=== PATIENT | female | born 1980 | race Caucasian/White ===

== ENCOUNTER 2017-03-27 21:51 | Emergency (ER) | payer MEDICAID, OTHER ==
[~2017-03-27] VITALS: Ht 160 cm; Wt 87.7 kg
[2017-03-27 21:54] VITALS: BP 152/94
[2017-03-27] MEDS ORDERED: CLINDAMYCIN 150 MG CAPSULE PO ONE (23:00)
== END 2017-03-27 23:14 | disposition home or self-care (01) ==
LOC: ED 23:00
DX: L02.413 Cutaneous abscess of right upper limb (principal); L03.113 Cellulitis of right upper limb
CPT/HCPCS: 10060

== ENCOUNTER 2017-05-07 23:52 | Emergency (ER) | payer MEDICAID, OTHER ==
[~2017-05-07] VITALS: Ht 160 cm; Wt 85.2 kg
[2017-05-07 23:54] VITALS: BP 159/104
[2017-05-08] MEDS ORDERED: PROPARACAINE OPHTH 0.5%, 15ML ONE (01:20)
[2017-05-08] MEDS ORDERED: FLUORESCEIN OPHTHALMIC 1 MG STRIP ONE (01:20)
[2017-05-08] MEDS ORDERED: FLUORESCEIN OPHTHALMIC 1 MG STRIP EACHEYE ONE (01:30)
[2017-05-08] MEDS ORDERED: PROPARACAINE OPHTH 0.5%, 15ML EACHEYE ONE (01:30)
== END 2017-05-08 02:05 | disposition home or self-care (01) ==
LOC: ED 23:59
DX: R21 Rash and other nonspecific skin eruption (principal); Z88.1 Allergy status to other antibiotic agents; Z88.2 Allergy status to sulfonamides
CPT/HCPCS: 99282

== ENCOUNTER 2017-05-09 12:05 | Emergency (ER) | payer MEDICAID ==
[~2017-05-09] VITALS: Ht 160 cm; Wt 86.6 kg
[2017-05-09 12:46] LABS: HEMATOCRIT 42.5 % (34.6-47.8); HEMOGLOBIN 14.1 g/dL (11.7-16.4); WHITE BLOOD COUNT 11.5 x10^3/uL (3.4-10)
[2017-05-09 12:58] LABS: BLOOD UREA NITROGEN 8 mg/dL (7-18)
[2017-05-09] MEDS ORDERED: FLUORESCEIN OPHTHALMIC 1 MG STRIP ONE (12:59)
[2017-05-09] MEDS ORDERED: LORazepam 1MG TABLET PO ONE (13:00)
[2017-05-09 13:29] LABS: ASPARTATE AMINO TRANSFERASE 35 U/L (15-37); BLOOD UREA NITROGEN 8 mg/dL (7-18)
[2017-05-09] MEDS ORDERED: GADOBUTROL 10 MMOL/10 ML PFS ONE (15:06)
[2017-05-09] MEDS ORDERED: LORazepam 1MG TABLET ONE (16:08)
[2017-05-09 18:17] VITALS: BP 133/91
== END 2017-05-09 18:41 | disposition home or self-care (01) ==
LOC: ED 15:41
DX: H53.2 Diplopia (principal); Z90.49 Acquired absence of other specified parts of digestive tract
CPT/HCPCS: 36415; 70450; 70481; 70543; 70553; 71010; 80048; 80053; 82040; 85025; 85610; 85651; 93005; 99285; A9585

== ENCOUNTER 2017-09-18 20:50 | Emergency (ER) | payer MEDICAID ==
[~2017-09-18] VITALS: Ht 160 cm; Wt 95.3 kg
[2017-09-18 20:52] VITALS: BP 144/90
[2017-09-18 21:35] LABS: BASOPHILS # (AUTO) 0.04 x10^3/uL (0-0.1); BASOPHILS % (AUTO) 1 % (0-1); EOSINOPHILS # (AUTO) 0.26 x10^3/uL (0-0.4); EOSINOPHILS % (AUTO) 3 % (1-7); LYMPHOCYTES # (AUTO) 2.75 x10^3/uL (1-3.4); LYMPHOCYTES % (AUTO) 31 % (22-44); MD NO; MEAN CORPUSCULAR VOLUME 87.7 fL (80-100); MEAN PLATELET VOLUME 9.7 fL (7.4-10.4); MONOCYTES # (AUTO) 0.59 x10^3/uL (0.2-0.8); MONOCYTES % (AUTO) 7 % (2-9); NEUTROPHILS # (AUTO) 5.25 x10^3/uL (1.8-6.8); NEUTROPHILS % (AUTO) 59 % (42-75); PLATELET COUNT 266 x10^3/uL (130-400); RED BLOOD COUNT 4.77 x10^6/uL (3.82-5.3); RED CELL DISTRIBUTION WIDTH 12.9 % (9.6-15.2)
[2017-09-18 21:46] LABS: ANION GAP 7 mmol/L (5-15); CALCIUM 8.1 mg/dL (8.5-10.1); CHLORIDE 110 mmol/L (98-107); CREATININE 0.65 mg/dL (0.55-1.02)
[2017-09-18] MEDS ORDERED: DEXAMETHASONE 4 MG TABLET ONE (22:16)
[2017-09-18] MEDS ORDERED: DEXAMETHASONE 4 MG TABLET PO ONE (22:30)
== END 2017-09-18 22:33 | disposition home or self-care (01) ==
LOC: ED 21:42
DX: L03.213 Periorbital cellulitis (principal)
CPT/HCPCS: 36415; 80048; 85025; 99284

== ENCOUNTER 2017-12-19 08:04 | Emergency (ER) | payer MEDICAID ==
[~2017-12-19] VITALS: Ht 160 cm; Wt 92.7 kg
[2017-12-19] MEDS ORDERED: FAMOTIDINE 20 MG TABLET PO ONE (09:00)
[2017-12-19] MEDS ORDERED: DIPHENHYDRAMINE 50 MG/ML, 1ML IM ONE (09:00)
[2017-12-19] MEDS ORDERED: TRIAMCINOLONE ACETONIDE 40 MG/ML, 1ML IM ONE (09:00)
[2017-12-19] MEDS ORDERED: KETOROLAC 30 MG/1 ML IM ONE (09:00)
[2017-12-19] MEDS ORDERED: FAMOTIDINE 20 MG TABLET ONE (09:17)
[2017-12-19] MEDS ORDERED: DIPHENHYDRAMINE 50 MG/ML, 1ML ONE (09:18)
[2017-12-19] MEDS ORDERED: KETOROLAC 30 MG/1 ML ONE (09:18)
[2017-12-19 10:10] VITALS: BP 156/87
== END 2017-12-19 10:11 | disposition home or self-care (01) ==
LOC: ED 09:14
DX: L24.89 Irritant contact dermatitis due to other agents (principal)
CPT/HCPCS: 96372; 99284; J1200; J1885; J3301

== ENCOUNTER 2018-12-14 21:45 | Emergency (ER) | payer MEDICAID ==
[~2018-12-14] VITALS: Ht 160 cm; Wt 94.4 kg
[2018-12-14 21:48] VITALS: BP 168/110
[2018-12-14] MEDS ORDERED: HYDROcodone/APAP 5/325 TABLET PO ONE (22:00)
[2018-12-14] MEDS ORDERED: ONDANSETRON ODT 4 MG PO ONE (22:00)
[2018-12-14] MEDS ORDERED: ONDANSETRON ODT 4 MG ONE (22:02)
[2018-12-14] MEDS ORDERED: HYDROcodone/APAP 5/325 TABLET ONE (22:02)
--- NOTE | 2018-12-14 23:08 | NUR ---
SPLINT APPLIED BY TECH, PT AWARE OF FOLLOW-UP, USEOF ICE, ELEVATION AND MEDICATION USE, AWARE OF REASONS TO RETURN.
== END 2018-12-14 23:34 | disposition home or self-care (01) ==
LOC: ED 23:28
DX: S63.502A Unspecified sprain of left wrist, initial encounter (principal); Z90.49 Acquired absence of other specified parts of digestive tract; Z88.1 Allergy status to other antibiotic agents; Z88.2 Allergy status to sulfonamides; V00.121A Fall from non-in-line roller-skates, initial encounter; Y93.51 Activity, roller skating (inline) and skateboarding; Y92.009 Unspecified place in unspecified non-institutional (private) residence as the place of occurrence of the external cause; Y99.8 Other external cause status
CPT/HCPCS: 29125; 73030; 73110; 99283; Q0162

== ENCOUNTER 2019-02-17 20:58 | Emergency (ER) | payer MEDICAID ==
[~2019-02-17] VITALS: Ht 160 cm; Wt 94.7 kg
[2019-02-17 21:00] VITALS: BP 164/90
--- NOTE | 2019-02-17 21:26 | NUR ---
D/C INSTRUCTIONS, MEDS & F/U APPT RV'WD WITH PT, SHE VERBALIZES UNDERSTANDING. RX GIVEN X3. PT AMBULATED OUT OF ED WITHOUT DIFFICULTY.
== END 2019-02-17 21:28 | disposition home or self-care (01) ==
LOC: ED 21:26
DX: L20.84 Intrinsic (allergic) eczema (principal); Z88.1 Allergy status to other antibiotic agents
CPT/HCPCS: 99283

== ENCOUNTER → 2020-09-02 | Outpatient (CLI) | payer OTHER ==
[~2020-09-02] MED LIST: GADOTERATE 10 MMOL/20 ML VIAL ONE
== END | disposition home or self-care (01) ==
LOC: RAD 17:52
PROVIDERS: ATTEND Ophthalmology
DX: H53.461 Homonymous bilateral field defects, right side (principal)
CPT/HCPCS: 70543; 70553; A9575